=== PATIENT | male | born 1975 | race Caucasian/White ===

== ENCOUNTER → 2023-09-22 13:20 | Outpatient (REF) | payer OTHER, SELFPAY | LOC: MRI 3T 13:20 | PROVIDERS: ATTENDING PHYSICIAN Surgery; FAMILY PHYSICIAN Family Medicine | DX: R97.20 Elevated prostate specific antigen [PSA] (principal) | CPT/HCPCS: 72197; A9575 ==

== ENCOUNTER → 2024-10-11 08:20 | Outpatient (REF) | payer OTHER, SELFPAY | LOC: MRI 3T 08:20 | PROVIDERS: ATTENDING PHYSICIAN Surgery; FAMILY PHYSICIAN Nurse Practitioner | DX: R97.20 Elevated prostate specific antigen [PSA] (principal) | CPT/HCPCS: 72197; A9575 ==

== ENCOUNTER → 2024-11-16 11:08 | Outpatient (REF) | payer OTHER, SELFPAY | LOC: RAD 11:08 | PROVIDERS: ATTENDING PHYSICIAN Nurse Practitioner | DX: R10.32 Left lower quadrant pain (principal) | CPT/HCPCS: 74177; Q9967 ==

== ENCOUNTER 2025-08-06 06:20 | Day surgery (SDC) | payer OTHER, SELFPAY | END 2025-08-06 14:02 | disposition home or self-care (01) | LOC: GI 06:20 | PROVIDERS: ATTENDING PHYSICIAN Internal Medicine Gastroenterology | DX: Z12.11 Encounter for screening for malignant neoplasm of colon (principal); D12.5 Benign neoplasm of sigmoid colon; K63.5 Polyp of colon; K57.30 Diverticulosis of large intestine without perforation or abscess without bleeding; K64.8 Other hemorrhoids | CPT/HCPCS: 45385; 88305; 88341; 88342 ==